=== PATIENT | male | born 1955 | race American Indian/Alaskan Native ===

== ENCOUNTER 2017-01-09 08:19 | Inpatient (IN) | payer SELFPAY ==
[2017-01-09] MEDS ORDERED: ZOFRAN ODT PO ONE (08:53)
[2017-01-09] MEDS ORDERED: ZOFRAN ODT ONE (08:56)
[2017-01-09 10:44] LABS: Bacteria,Urine 1+ /HPF (Negative); Bilirubin,Urine NEG (Negative); Blood,Urine SM (Negative); Ketones,Urine NEG (Negative); Leukocyte Esterase,Urine NEG (Negative); Nitrite,Urine NEG (Negative); Urobilinogen,Urine < 2.0 mg/dL (<2.0)
[2017-01-09] MEDS ORDERED: NORMODYNE IV ONE ×2 (13:38→16:55)
[2017-01-09] MEDS ORDERED: ZOFRAN IV ONE ×2 (14:07→17:17)
[2017-01-09 14:09] LABS: Basophils % (Auto) 0.4 % (0.0-1.8); Eosinophils % (Auto) 0.8 % (0.0-4.3); Hematocrit 43.1 % (35.5-45.6); Hemoglobin 13.7 gm/dl (11.8-15.2); Mean Corpuscular HGB Conc 32 % (32-34); Mean Corpuscular Hemoglobin 29 pg (28-32); Mean Corpuscular Volume 91 fl (84-94); Platelet Count 315 K/mm3 (140-440); Red Blood Count 4.76 M/mm3 (3.65-5.03); Red Cell Distribution Width 15.4 % (13.2-15.2); White Blood Count 12.6 K/mm3 (4.5-11.0)
[2017-01-09] MEDS ORDERED: ZOFRAN ONE ×2 (14:10→17:20)
[2017-01-09 14:19] LABS: INR 0.98 (0.87-1.13)
[2017-01-09 14:20] LABS: Partial Thromboplastin Time 27.2 Sec. (24.2-36.6)
[2017-01-09 14:26] LABS: Alanine Aminotransferase 7 units/L (7-56); Albumin 4.2 g/dL (3.9-5); Albumin/Globulin Ratio 1.4 %; Alkaline Phosphatase 92 units/L (35-129); Anion Gap 22 mmol/L; BUN/Creatinine Ratio 9; Blood Urea Nitrogen 34 mg/dL (9-20); Calcium 9.1 mg/dL (8.4-10.2); Carbon Dioxide 23 mmol/L (22-30); Chloride 99.3 mmol/L (98-107); Glucose 181 mg/dL (75-100); Lipase 34 units/L (13-60); Potassium 4.2 mmol/L (3.6-5.0); Sodium 140 mmol/L (137-145); Total Protein 7.1 g/dL (6.3-8.2)
[2017-01-09 14:40] LABS: Bilirubin,Direct < 0.2 mg/dL (0-0.2); Bilirubin,Indirect 0.3 mg/dL
--- NOTE | 2017-01-09 15:29 | XRay Report ---
AP CHEST: History: Hypertension. AP view of the chest demonstrates a normal mediastinal and cardiac contour with clear lungs and normal bony and soft tissue structures. IMPRESSION: Normal AP chest.
--- NOTE | 2017-01-09 15:45 | Cat Scan Report ---
CT of the abdomen and pelvis without contrast. History: Renal failure, flank pain. Findings: The liver, spleen, and pancreas are normal. The gallbladder is unremarkable. The kidneys demonstrate no evidence of renal stones or hydronephrosis. A subcentimeter round hypodensity is seen in the lateral cortex of the left kidney. There are no other renal abnormalities. No ureteral stones or dilatation. The prostate is moderately enlarged. A Og catheter is seen within the urinary bladder. No mesenteric inflammatory changes or evidence of appendicitis is seen. Multiple scattered small sclerotic lesions are seen within the bony pelvis and lumbar spine. Impression: No acute findings. A small left renal cyst is noted. 2. Prostatic enlargement. 3. Multiple small bony sclerotic lesions are identified. A metastatic process cannot be excluded. I would recommend a nuclear bone scan for confirmation.
[2017-01-09 18:28] LABS: INR 1.03 (0.87-1.13)
[2017-01-09 18:29] LABS: Partial Thromboplastin Time 29.1 Sec. (24.2-36.6)
[2017-01-09 18:30] LABS: Creatine Kinase MB 3.8 ng/mL (0.0-4.0)
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
[2017-01-09] MEDS ORDERED: D50W (25GM) Syringe IV PRN (22:02)
[2017-01-09] MEDS ORDERED: DULCOLAX PR PRN (22:02)
[2017-01-09] MEDS ORDERED: PERCOCET 5/325 PO PRN (22:02)
[2017-01-09] MEDS ORDERED: MILK OF MAGNESIA PO PRN (22:02)
[2017-01-09] MEDS ORDERED: TYLENOL PO PRN (22:02)
[2017-01-09] MEDS ORDERED: ZOFRAN IV PRN (22:02)
[2017-01-09] MEDS ORDERED: APRESOLINE IV ONE (22:02)
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
[2017-01-10] MEDS ORDERED: APRESOLINE IV ONE (02:47)
[2017-01-10] MEDS ORDERED: APRESOLINE IV PRN ×3 (03:20→11:50)
[2017-01-10 05:44] LABS: Basophils % (Auto) 0.7 % (0.0-1.8); Eosinophils % (Auto) 1.4 % (0.0-4.3); Hematocrit 40.3 % (35.5-45.6); Hemoglobin 13.2 gm/dl (11.8-15.2); Mean Corpuscular HGB Conc 33 % (32-34); Mean Corpuscular Hemoglobin 29 pg (28-32); Mean Corpuscular Volume 90 fl (84-94); Platelet Count 282 K/mm3 (140-440); Red Blood Count 4.48 M/mm3 (3.65-5.03); Red Cell Distribution Width 15.5 % (13.2-15.2); White Blood Count 12.5 K/mm3 (4.5-11.0)
[2017-01-10 06:04] LABS: Creatine Kinase MB 2.7 ng/mL (0.0-4.0)
[2017-01-10 06:06] LABS: Calcium 8.4 mg/dL (8.4-10.2); Chloride 101.7 mmol/L (98-107); Potassium 4.1 mmol/L (3.6-5.0)
[2017-01-10] MEDS: FLOMAX PO SCH ×2 (07:03→09:11)
[2017-01-10] MEDS ORDERED: LOVENOX SUB-Q SCH (10:00)
[2017-01-10] MEDS ORDERED: NON-FORMULARY (Nifedipine [Nifedipine Er] 90 MG) PO SCH (12:00)
[2017-01-10] MEDS ORDERED: HYDRALAZINE HCL 150 MG PO SCH (12:00)
[2017-01-10] MEDS: CARDURA PO SCH (12:57)
[2017-01-10] MEDS: celeXA PO SCH (12:58)
[2017-01-10] MEDS: IMDUR PO SCH (12:59)
[2017-01-10] MEDS: KEPPRA PO SCH ×2 (12:59→22:07)
[2017-01-10] MEDS: APRESOLINE PO SCH ×2 (13:00→22:12)
[2017-01-10] MEDS ORDERED: HEPARIN SUB-Q SCH (14:00)
[2017-01-10] MEDS: NOVOLOG SUB-Q SCH ×2 (18:42→22:08)
--- NOTE | 2017-01-10 19:04 | Progress Note ---
Assessment and Plan Assessment and plan: 61 yo AAM with HTN, DM, CKD that progressed to ESRD and had recent AVF placement , but HD not initiated yet, presented for inability to urinate Urinary retention In ER Og catheter placed and suprapubic pain relieved; aprox 1L residual volume noted CT pelvis showed enlarged prostate Obtain renal ultrasound Consult Urology Suspected metastatic prostate cancer CT abdomen/pelvis enlarged prostate and multiple bony lesions that raises suspicion of metastatic prostate cancer Will consult urology and oncology for possible prostate biopsy/bone scan, additional testing and further management CKD/ESRD Status post AV fistula placement HD not initiated Creatinine 4.4, electrolytes within normal limits Monitor closely HTN urgency Home antihypertensive regimen restarted and adjusted, prn iv meds added On Imdur, nifedipine and hydralazine Monitor BP DM Accu-Cheks and SSI History of traumatic brain injury On Keppra for seizure prophylaxis DVT prophylaxis Heparin subcutaneous History Interval history: c/o BP meds not being started on admission and having blood pressure in 190s this morning Hospitalist Physical - Constitutional Vitals: Temp Pulse Resp BP Pulse Ox 97.9 F 89 18 156/92 96 01/10/17 18:22 01/10/17 18:22 01/10/17 18:22 01/10/17 18:22 01/10/17 18:22 General appearance: Present: no acute distress, well-nourished - EENT Eyes: Present: PERRL, EOM intact. Absent: scleral icterus, conjunctival injection - Neck Neck: Present: supple, normal ROM. Absent: masses or JVD - Respiratory Respiratory effort: normal Respiratory: bilateral: CTA, negative: rhonchi, wheezing - Cardiovascular Rhythm: regular Heart Sounds: Present: S1 & S2. Absent: systolic murmur - Extremities Extremities: no ischemia - Abdominal General gastrointestinal: soft, non-tender, non-distended, normal bowel sounds - Psychiatric Psychiatric: cooperative - Neurologic Neurologic: CNII-XII intact, no focal deficits - Additional findings Additional findings: Og in place Results - Labs CBC & Chem 7: 01/10/17 05:19 01/11/17 05:20 Labs: Laboratory Last Values WBC 12.5 K/mm3 (4.5-11.0) H 01/10/17 05:19 RBC 4.48 M/mm3 (3.65-5.03) 01/10/17 05:19 Hgb 13.2 gm/dl (11.8-15.2) 01/10/17 05:19 Hct 40.3 % (35.5-45.6) 01/10/17 05:19 MCV 90 fl (84-94) 01/10/17 05:19 MCH 29 pg (28-32) 01/10/17 05:19 MCHC 33 % (32-34) 01/10/17 05:19 RDW 15.5 % (13.2-15.2) H 01/10/17 05:19 Plt Count 282 K/mm3 (140-440) 01/10/17 05:19 Lymph % (Auto) 9.0 % (13.4-35.0) L 01/10/17 05:19 [place] % (Auto) 9.4 % (0.0-7.3) H 01/10/17 05:19 Eos % (Auto) 1.4 % (0.0-4.3) 01/10/17 05:19 Baso % (Auto) 0.7 % (0.0-1.8) 01/10/17 05:19 Lymph # 1.1 K/mm3 (1.2-5.4) L 01/10/17 05:19 [place] # 1.2 K/mm3 (0.0-0.8) H 01/10/17 05:19 Eos # 0.2 K/mm3 (0.0-0.4) 01/10/17 05:19 Baso # 0.1 K/mm3 (0.0-0.1) 01/10/17 05:19 Seg Neutrophils % 79.5 % (40.0-70.0) H 01/10/17 05:19 Seg Neutrophils # 10.0 K/mm3 (1.8-7.7) H 01/10/17 05:19 PT 14.0 Sec. (12.2-14.9) 01/09/17 17:41 INR 1.03 (0.87-1.13) 01/09/17 17:41 APTT 29.1 Sec. (24.2-36.6) 01/09/17 17:41 Sodium 139 mmol/L (137-145) 01/10/17 05:19 Potassium 4.1 mmol/L (3.6-5.0) 01/10/17 05:19 Chloride 101.7 mmol/L (98-107) 01/10/17 05:19 Carbon Dioxide 21 mmol/L (22-30) L 01/10/17 05:19 Anion Gap 20 mmol/L 01/10/17 05:19 BUN 34 mg/dL (9-20) H 01/10/17 05:19 Creatinine 3.8 mg/dL (0.8-1.5) H 01/10/17 05:19 Estimated GFR 20 ml/min 01/10/17 05:19 BUN/Creatinine Ratio 9 % 01/10/17 05:19 Glucose 170 mg/dL (75-100) H 01/10/17 05:19 Calcium 8.4 mg/dL (8.4-10.2) 01/10/17 05:19 Phosphorus 4.50 mg/dL (2.5-4.5) 01/09/17 13:48 Magnesium 1.90 mg/dL (1.7-2.3) 01/09/17 13:48 Total Bilirubin 0.50 mg/dL (0.1-1.2) 01/09/17 13:48 Direct Bilirubin < 0.2 mg/dL (0-0.2) 01/09/17 13:48 Indirect Bilirubin 0.3 mg/dL 01/09/17 13:48 AST 13 units/L (5-40) 01/09/17 13:48 ALT 7 units/L (7-56) 01/09/17 13:48 Alkaline Phosphatase 92 units/L (35-129) 01/09/17 13:48 Total Creatine Kinase 227 units/L (55-170) H 01/10/17 05:19 CK-MB (CK-2) 2.7 ng/mL (0.0-4.0) 01/10/17 05:19 CK-MB (CK-2) Rel Index 1.1 (0-4) 01/10/17 05:19 Troponin T 0.116 ng/mL (0.00-0.029) H* 01/10/17 05:19 NT-Pro-B Natriuret Pep 2494 pg/mL (0-900) H 01/09/17 17:41 Total Protein 7.1 g/dL (6.3-8.2) 01/09/17 13:48 Albumin 4.2 g/dL (3.9-5) 01/09/17 13:48 Albumin/Globulin Ratio 1.4 % 01/09/17 13:48 Triglycerides 64 mg/dL (2-149) 01/09/17 17:41 Cholesterol 144 mg/dL (50-199) 01/09/17 17:41 LDL Cholesterol Direct 77 mg/dL (50-130) 01/09/17 17:41 HDL Cholesterol 55 mg/dL (40-59) 01/09/17 17:41 Cholesterol/HDL Ratio 2.61 % 01/09/17 17:41 Lipase 95 units/L (13-60) H 01/09/17 17:41 Prostate Specific Ag 29.06 ng/mL (0.00-4.00) H 01/09/17 17:41 Urine Color Yellow (Yellow) 01/09/17 Unknown Urine Turbidity Clear (Clear) 01/09/17 Unknown Urine pH 5.0 (5.0-7.0) 01/09/17 Unknown Ur Specific [place] 1.008 (1.003-1.030) 01/09/17 Unknown Urine Protein 100 mg/dl mg/dL (Negative) 01/09/17 Unknown Urine Glucose (UA) >=500 mg/dL (Negative) 01/09/17 Unknown Urine Ketones Neg mg/dL (Negative) 01/09/17 Unknown Urine Blood Sm (Negative) 01/09/17 Unknown Urine Nitrite Neg (Negative) 01/09/17 Unknown Urine Bilirubin Neg (Negative) 01/09/17 Unknown Urine Urobilinogen < 2.0 mg/dL (<2.0) 01/09/17 Unknown Ur Leukocyte Esterase Neg (Negative) 01/09/17 Unknown Urine WBC (Auto) 1.0 /HPF (0.0-6.0) 01/09/17 Unknown Urine RBC (Auto) 3.0 /HPF (0.0-6.0) 01/09/17 Unknown Urine Bacteria (Auto) 1+ /HPF (Negative) 01/09/17 Unknown - Imaging and Cardiology CT scan - abdomen: report reviewed CT scan - pelvis: report reviewed
[2017-01-10] MEDS: FEOSOL PO SCH (22:07)
[2017-01-10] MEDS: PROCARDIA XL PO SCH (22:07)
[2017-01-10] MEDS: HEPARIN SUB-Q SCH (22:08)
[2017-01-11 06:31] LABS: Calcium 8.2 mg/dL (8.4-10.2); Chloride 101.3 mmol/L (98-107); Potassium 3.7 mmol/L (3.6-5.0)
[2017-01-11] MEDS: HEPARIN SUB-Q SCH ×3 (06:45→22:35)
[2017-01-11] MEDS: NOVOLOG SUB-Q SCH ×4 (11:25→22:44)
[2017-01-11] MEDS: APRESOLINE PO SCH ×3 (11:26→22:35)
[2017-01-11] MEDS: IMDUR PO SCH (11:26)
[2017-01-11] MEDS: PROCARDIA XL PO SCH ×2 (11:26→22:34)
[2017-01-11] MEDS: CARDURA PO SCH (11:26)
[2017-01-11] MEDS: FEOSOL PO SCH ×2 (11:26→22:35)
[2017-01-11] MEDS: KEPPRA PO SCH ×2 (11:26→22:34)
[2017-01-11] MEDS: FLOMAX PO SCH (11:27)
[2017-01-11] MEDS: celeXA PO SCH (11:27)
--- NOTE | 2017-01-11 11:52 | Hem/Onc Consultation ---
History of Present Illness - Reason for Consult Consult date: 01/11/17 - History of Present Illness Consultation dictated. Agree with urology evaluation for prostate biopsy. We will order bone scan. Suspect prostate cancer with bone metastases. Medications and Allergies Allergies Allergy/AdvReac Type Severity Reaction Status Date / Time aspirin Allergy Unknown Verified 01/09/17 08:50 peanut AdvReac Seizure Verified 01/11/17 00:58 Home Medications Medication Instructions Recorded Confirmed Last Taken Type Citalopram [Celexa] 10 mg PO QDAY 01/09/17 01/09/17 Unknown History Doxazosin [Cardura] 4 mg PO QDAY 01/09/17 01/09/17 Unknown History Ergocalciferol [Vitamin D2] 1 cap PO QWEEK 01/09/17 01/09/17 Unknown History Ferrous Sulfate [Iron] 325 mg PO BID 01/09/17 01/09/17 Unknown History Hydralazine HCl 150 mg PO Q8H 01/09/17 01/09/17 Unknown History ISOSORBIDE MONOnitrate [Imdur ER] 60 mg PO QDAY 01/09/17 01/09/17 Unknown History NIFEdipine [] 90 mg PO BID 01/09/17 01/09/17 Unknown History levETIRAcetam [Keppra] 500 mg PO BID 01/09/17 01/09/17 Unknown History Active Meds: Active Medications Acetaminophen (Tylenol) 650 mg PO Q4H PRN PRN Reason: Pain MILD(1-3)/Fever >100.5/BLAS Bisacodyl (Dulcolax) 10 mg MO QDAY PRN PRN Reason: Constipation unrelieved by MOM Citalopram Hydrobromide (Celexa) 10 mg PO QDAY [facility] Last Admin: 01/11/17 11:27 Dose: 10 mg Dextrose (D50w (25gm) Syringe) 50 ml IV PRN PRN PRN Reason: Hypoglycemia Doxazosin Mesylate (Cardura) 4 mg PO QDAY [facility] Last Admin: 01/11/17 11:26 Dose: 4 mg Ergocalciferol (Vitamin D2) 50,000 unit PO [facility] Ferrous Sulfate (Feosol) 325 mg PO BID [facility] Last Admin: 01/11/17 11:26 Dose: 325 mg Heparin Sodium (Porcine) (Heparin) 5,000 unit SUB-Q Q8HR [facility] Last Admin: 01/11/17 06:45 Dose: 5,000 unit Hydralazine HCl (Apresoline) 10 mg IV Q6H PRN PRN Reason: SBP > 160 Hydralazine HCl (Apresoline) 150 mg PO TID [facility] Last Admin: 01/11/17 11:26 Dose: 150 mg Insulin Aspart (Novolog) 0 units SUB-Q ACHS [facility] PRN Reason: Protocol Last Admin: 01/11/17 11:25 Dose: Not Given Isosorbide Mononitrate (Imdur) 60 mg PO QDAY [facility] Last Admin: 01/11/17 11:26 Dose: 60 mg Levetiracetam (Keppra) 500 mg PO BID [facility] Last Admin: 01/11/17 11:26 Dose: 500 mg Magnesium Hydroxide (Milk Of Magnesia) 30 ml PO Q4H PRN PRN Reason: Constipation Nifedipine (Procardia Xl) 90 mg PO BID [facility] Last Admin: 01/11/17 11:26 Dose: 90 mg Ondansetron HCl (Zofran) 4 mg IV Q8H PRN PRN Reason: N/V unrelieved by Reglan Oxycodone/Acetaminophen (Percocet 5/325) 1 tab PO Q6H PRN PRN Reason: Pain, Moderate (4-6) Tamsulosin HCl (Flomax) 0.4 mg PO QDAY [facility] Last Admin: 01/11/17 11:27 Dose: 0.4 mg Exam - Constitutional Vitals: Last Vital Signs Temp 98.1 F 01/11/17 04:43 Pulse 89 01/11/17 04:43 Resp 18 01/11/17 04:43 BP 117/65 01/11/17 04:43 Pulse Ox 94 01/11/17 07:34 Results - Labs lab Results: Laboratory Results - last 24 hr 01/10/17 01/10/17 01/10/17 07:53 11:26 18:15 Sodium Potassium Chloride Carbon Dioxide Anion Gap BUN Creatinine Estimated GFR BUN/Creatinine Ratio Glucose POC Glucose 163 H 211 H 190 H Calcium 01/10/17 01/11/17 20:23 05:20 Sodium 139 Potassium 3.7 Chloride 101.3 Carbon Dioxide 22 Anion Gap 19 BUN 45 H Creatinine 4.4 H Estimated GFR 17 BUN/Creatinine Ratio 10 Glucose 162 H POC Glucose 126 H Calcium 8.2 L
--- NOTE | 2017-01-11 16:20 | Ultrasound Report ---
FINAL REPORT EXAM: US RENAL BILAT HISTORY: ARF TECHNIQUE: Ultrasound examination of the kidneys PRIORS: None. FINDINGS: Visualized right kidney: 9.7 x 4.5 x 4.5 cm. Visualized left kidney: 11.1 x 4.7 x 4.2 cm. Renal cortical thickness is 18 mm on the right and 10 mm on the left. Focal lesion: None Calculus: None Hydronephrosis: Nonspecific scattered hypoechoic foci in the renal medulla bilaterally may be artifact or mild hydronephrosis. Perinephric fluid: None Visualized urinary bladder: Appears empty around Og catheter. IMPRESSION: Nonspecific scattered hypoechoic foci in the renal medulla bilaterally may be artifact or mild hydronephrosis
--- NOTE | 2017-01-11 20:49 | Progress Note ---
Assessment and Plan Assessment and plan: 61 yo AAM with HTN, DM, CKD that progressed to ESRD and had recent AVF placement , but HD not initiated yet, presented for inability to urinate Urinary retention In ER Og catheter placed and suprapubic pain relieved; aprox 1L residual volume noted CT pelvis showed enlarged prostate Renal ultrasound with possible mild hydronephrosis Awaiting Urology valuation Suspected metastatic prostate cancer PSA elevated and CT abdomen/pelvis showing enlarged prostate and multiple bony lesions that raises suspicion of metastatic prostate cancer Oncology consulted and bone scan ordered Awaiting urology evaluation for possible prostate biopsy, additional testing, further management CKD/ESRD Status post AV fistula placement HD not initiated Creatinine 4.4, electrolytes within normal limits Monitor closely HTN urgency Home antihypertensive regimen restarted and adjusted, prn iv meds added On Imdur, nifedipine and hydralazine Monitor BP DM Accu-Cheks and SSI Check hemoglobin A1c History of traumatic brain injury On Keppra for seizure prophylaxis DVT prophylaxis Heparin subcutaneous History Interval history: BP better controlled; has no specific complaints Hospitalist Physical - Constitutional Vitals: Temp Pulse Resp BP Pulse Ox 98.4 F 84 18 133/70 95 01/11/17 16:21 01/11/17 16:21 01/11/17 16:21 01/11/17 16:21 01/11/17 16:21 General appearance: Present: no acute distress, well-nourished - EENT Eyes: Present: PERRL, EOM intact - Neck Neck: Present: supple, normal ROM. Absent: masses or JVD - Respiratory Respiratory effort: normal Respiratory: bilateral: CTA, negative: rales, rhonchi - Cardiovascular Rhythm: regular Heart Sounds: Present: S1 & S2. Absent: systolic murmur - Extremities Extremities: no ischemia Extremity abnormal: other (UE AV fistula) - Abdominal General gastrointestinal: soft, non-tender, non-distended, normal bowel sounds - Psychiatric Psychiatric: cooperative - Neurologic Neurologic: CNII-XII intact, no focal deficits - Additional findings Additional findings: Og catheter in place Results - Labs CBC & Chem 7: 01/10/17 05:19 01/11/17 05:20 Labs: Laboratory Last Values WBC 12.5 K/mm3 (4.5-11.0) H 01/10/17 05:19 RBC 4.48 M/mm3 (3.65-5.03) 01/10/17 05:19 Hgb 13.2 gm/dl (11.8-15.2) 01/10/17 05:19 Hct 40.3 % (35.5-45.6) 01/10/17 05:19 MCV 90 fl (84-94) 01/10/17 05:19 MCH 29 pg (28-32) 01/10/17 05:19 MCHC 33 % (32-34) 01/10/17 05:19 RDW 15.5 % (13.2-15.2) H 01/10/17 05:19 Plt Count 282 K/mm3 (140-440) 01/10/17 05:19 Lymph % (Auto) 9.0 % (13.4-35.0) L 01/10/17 05:19 [place] % (Auto) 9.4 % (0.0-7.3) H 01/10/17 05:19 Eos % (Auto) 1.4 % (0.0-4.3) 01/10/17 05:19 Baso % (Auto) 0.7 % (0.0-1.8) 01/10/17 05:19 Lymph # 1.1 K/mm3 (1.2-5.4) L 01/10/17 05:19 [place] # 1.2 K/mm3 (0.0-0.8) H 01/10/17 05:19 Eos # 0.2 K/mm3 (0.0-0.4) 01/10/17 05:19 Baso # 0.1 K/mm3 (0.0-0.1) 01/10/17 05:19 Seg Neutrophils % 79.5 % (40.0-70.0) H 01/10/17 05:19 Seg Neutrophils # 10.0 K/mm3 (1.8-7.7) H 01/10/17 05:19 PT 14.0 Sec. (12.2-14.9) 01/09/17 17:41 INR 1.03 (0.87-1.13) 01/09/17 17:41 APTT 29.1 Sec. (24.2-36.6) 01/09/17 17:41 Sodium 139 mmol/L (137-145) 01/11/17 05:20 Potassium 3.7 mmol/L (3.6-5.0) 01/11/17 05:20 Chloride 101.3 mmol/L (98-107) 01/11/17 05:20 Carbon Dioxide 22 mmol/L (22-30) 01/11/17 05:20 Anion Gap 19 mmol/L 01/11/17 05:20 BUN 45 mg/dL (9-20) H 01/11/17 05:20 Creatinine 4.4 mg/dL (0.8-1.5) H 01/11/17 05:20 Estimated GFR 17 ml/min 01/11/17 05:20 BUN/Creatinine Ratio 10 % 01/11/17 05:20 Glucose 162 mg/dL (75-100) H 01/11/17 05:20 POC Glucose 208 (70-105) H 01/11/17 16:27 Calcium 8.2 mg/dL (8.4-10.2) L 01/11/17 05:20 Phosphorus 4.50 mg/dL (2.5-4.5) 01/09/17 13:48 Magnesium 1.90 mg/dL (1.7-2.3) 01/09/17 13:48 Total Bilirubin 0.50 mg/dL (0.1-1.2) 01/09/17 13:48 Direct Bilirubin < 0.2 mg/dL (0-0.2) 01/09/17 13:48 Indirect Bilirubin 0.3 mg/dL 01/09/17 13:48 AST 13 units/L (5-40) 01/09/17 13:48 ALT 7 units/L (7-56) 01/09/17 13:48 Alkaline Phosphatase 92 units/L (35-129) 01/09/17 13:48 Total Creatine Kinase 227 units/L (55-170) H 01/10/17 05:19 CK-MB (CK-2) 2.7 ng/mL (0.0-4.0) 01/10/17 05:19 CK-MB (CK-2) Rel Index 1.1 (0-4) 01/10/17 05:19 Troponin T 0.116 ng/mL (0.00-0.029) H* 01/10/17 05:19 NT-Pro-B Natriuret Pep 2494 pg/mL (0-900) H 01/09/17 17:41 Total Protein 7.1 g/dL (6.3-8.2) 01/09/17 13:48 Albumin 4.2 g/dL (3.9-5) 01/09/17 13:48 Albumin/Globulin Ratio 1.4 % 01/09/17 13:48 Triglycerides 64 mg/dL (2-149) 01/09/17 17:41 Cholesterol 144 mg/dL (50-199) 01/09/17 17:41 LDL Cholesterol Direct 77 mg/dL (50-130) 01/09/17 17:41 HDL Cholesterol 55 mg/dL (40-59) 01/09/17 17:41 Cholesterol/HDL Ratio 2.61 % 01/09/17 17:41 Lipase 95 units/L (13-60) H 01/09/17 17:41 Prostate Specific Ag 29.06 ng/mL (0.00-4.00) H 01/09/17 17:41 Urine Color Yellow (Yellow) 01/09/17 Unknown Urine Turbidity Clear (Clear) 01/09/17 Unknown Urine pH 5.0 (5.0-7.0) 01/09/17 Unknown Ur Specific [place] 1.008 (1.003-1.030) 01/09/17 Unknown Urine Protein 100 mg/dl mg/dL (Negative) 01/09/17 Unknown Urine Glucose (UA) >=500 mg/dL (Negative) 01/09/17 Unknown Urine Ketones Neg mg/dL (Negative) 01/09/17 Unknown Urine Blood Sm (Negative) 01/09/17 Unknown Urine Nitrite Neg (Negative) 01/09/17 Unknown Urine Bilirubin Neg (Negative) 01/09/17 Unknown Urine Urobilinogen < 2.0 mg/dL (<2.0) 01/09/17 Unknown Ur Leukocyte Esterase Neg (Negative) 01/09/17 Unknown Urine WBC (Auto) 1.0 /HPF (0.0-6.0) 01/09/17 Unknown Urine RBC (Auto) 3.0 /HPF (0.0-6.0) 01/09/17 Unknown Urine Bacteria (Auto) 1+ /HPF (Negative) 01/09/17 Unknown
--- NOTE | 2017-01-11 22:28 | Consultation ---
REFERRING PHYSICIAN: Jazzy Linder MD REASON FOR CONSULTATION: Possible prostate cancer. HISTORY OF PRESENT ILLNESS: The patient is a 61-year-old male who has history of diabetes, hypertension, chronic kidney disease. He presented to the hospital with difficulty urinating. He had recently been at [facility] and had AV fistula placed. He was to be starting hemodialysis, which he had not yet. During his hospitalization at [facility], he underwent CT of the abdomen and pelvis and was found to have prostatic enlargement along with multiple small bony sclerotic lesions, metastatic disease could not be ruled out. The patient did have a PSA checked, which was 29.8. The patient states his last PSA prior to this have been about a year and a half ago and it was normal. He denies any family history of any prostate cancer. He has lost weight in the last few months. He denies any pain. PAST MEDICAL HISTORY: As mentioned in history of present illness. SOCIAL HISTORY: Does not smoke or drink. FAMILY HISTORY: The patient states he does not know his family history well at all. PHYSICAL EXAMINATION: GENERAL: The patient is awake and oriented. HEENT: Unremarkable. CHEST: Clear. CARDIOVASCULAR: Regular rate. ABDOMEN: Soft, nontender. EXTREMITIES: No clubbing, cyanosis, or edema. PERTINENT LABORATORY: The patient's hemoglobin yesterday was 13.2, white count 12.5. Platelets 282,000. Monocytes 9.4%, lymphocytes 9%, segs were 79%. The patient's creatinine today was 4.4. His alkaline phosphatase was 92 on 01/09/2017. ASSESSMENT: Enlarged prostate with evidence of urinary outlet obstruction and on CT evidence of bony lesions all suggestive of prostate cancer especially with elevated PSA. PLAN: Agree with Urology evaluation. He will need a prostate biopsy. In the meantime, we will order a bone scan. I have discussed this with the patient. The patient understands. JOB# [id number] CECIS/NTS
[2017-01-12] MEDS: HEPARIN SUB-Q SCH ×3 (05:10→22:22)
[2017-01-12 06:36] LABS: Calcium 8.4 mg/dL (8.4-10.2); Chloride 101.8 mmol/L (98-107); Potassium 3.7 mmol/L (3.6-5.0)
--- NOTE | 2017-01-12 09:47 | Hem/Onc Progress Note ---
Assessment and Plan Follow-up on the bone scan. Awaiting urology evaluation. Subjective Date of service: 01/12/17 Interval history: pt to get bone scan. awaiting urology Objective - Constitutional Vitals: Last Vital Signs Temp 98.4 F 01/12/17 04:35 Pulse 90 01/12/17 04:35 Resp 18 01/12/17 04:35 BP 138/76 01/12/17 04:35 Pulse Ox 96 01/12/17 04:35 Performance status: 2- selfcare, ambulatory - Neck Neck: supple - Respiratory Respiratory effort: Positive: normal Respiratory: bilateral: CTA - Cardiovascular Rhythm: regular - Gastrointestinal General gastrointestinal: Present: soft - Labs Lab Results: Laboratory Results - last 24 hr 01/11/17 01/11/17 01/11/17 08:04 11:37 12:26 Sodium Potassium Chloride Carbon Dioxide Anion Gap BUN Creatinine Estimated GFR BUN/Creatinine Ratio Glucose POC Glucose 144 H 186 H 198 H Hemoglobin A1c Calcium 01/11/17 01/11/17 01/12/17 16:27 22:47 05:53 Sodium 138 Potassium 3.7 Chloride 101.8 Carbon Dioxide 22 Anion Gap 18 BUN 47 H Creatinine 4.4 H Estimated GFR 17 BUN/Creatinine Ratio 11 Glucose 204 H POC Glucose 208 H 201 H Hemoglobin A1c Calcium 8.4 01/12/17 05:53 Sodium Potassium Chloride Carbon Dioxide Anion Gap BUN Creatinine Estimated GFR BUN/Creatinine Ratio Glucose POC Glucose Hemoglobin A1c 6.9 H Calcium
[2017-01-12] MEDS: FLOMAX PO SCH (10:38)
[2017-01-12] MEDS: PROCARDIA XL PO SCH ×2 (10:38→22:23)
[2017-01-12] MEDS: IMDUR PO SCH (10:38)
[2017-01-12] MEDS: FEOSOL PO SCH ×2 (10:38→22:25)
[2017-01-12] MEDS: KEPPRA PO SCH ×2 (10:39→22:22)
[2017-01-12] MEDS: CARDURA PO SCH (10:39)
[2017-01-12] MEDS: APRESOLINE PO SCH ×3 (10:39→20:59)
[2017-01-12] MEDS: celeXA PO SCH (10:39)
[2017-01-12] MEDS: NOVOLOG SUB-Q SCH ×4 (10:41→22:31)
--- NOTE | 2017-01-12 13:42 | Nuclear Medicine Report ---
BONE SCAN: HISTORY: Abnormal CT, evaluate for bony metastasis, prostate cancer. FINDINGS: After injection of isotope, gamma camera imaging of the bony system was done. There is a solitary focus of increased radiotracer uptake in the right fourth anterior rib. Mild degenerative uptake in the shoulders, sternoclavicular joints, knees and ankles is noted. Normal urinary and soft tissue uptake. IMPRESSION: Solitary focus of increased radiotracer uptake in the right anterior fourth rib which could be related to a solitary metastasis. Trauma is thought less likely.
--- NOTE | 2017-01-12 15:14 | Consultation ---
History of Present Illness - Reason for Consult Consult date: 01/12/17 - History of Present Illness The patient presented to the emergency department with inability to urinate. He states that he has had a dialysis fistula placed in his right arm in anticipation of dialysis. Obviously has chronic renal insufficiency. He received care at [facility]. I do not know what his prior creatinine was. He states that he has never had a CT scan of his abdomen before. conway placed in ER This relieved his suprapubic pain area and he had a large residual volume of approximately 1 L. He complained of nausea. He was found to be hypertensive. bone scan---suggest mets A/P needs pus bx ( pt sates he wants prostate bx at [place]) Medications and Allergies Allergies Allergy/AdvReac Type Severity Reaction Status Date / Time aspirin Allergy Unknown Verified 01/09/17 08:50 peanut AdvReac Seizure Verified 01/11/17 00:58 Home Medications Medication Instructions Recorded Confirmed Last Taken Type Citalopram [Celexa] 10 mg PO QDAY 01/09/17 01/09/17 Unknown History Doxazosin [Cardura] 4 mg PO QDAY 01/09/17 01/09/17 Unknown History Ergocalciferol [Vitamin D2] 1 cap PO QWEEK 01/09/17 01/09/17 Unknown History Ferrous Sulfate [Iron] 325 mg PO BID 01/09/17 01/09/17 Unknown History Hydralazine HCl 150 mg PO Q8H 01/09/17 01/09/17 Unknown History ISOSORBIDE MONOnitrate [Imdur ER] 60 mg PO QDAY 01/09/17 01/09/17 Unknown History NIFEdipine [] 90 mg PO BID 01/09/17 01/09/17 Unknown History levETIRAcetam [Keppra] 500 mg PO BID 01/09/17 01/09/17 Unknown History Active Meds: Active Medications Acetaminophen (Tylenol) 650 mg PO Q4H PRN PRN Reason: Pain MILD(1-3)/Fever >100.5/BLAS Bisacodyl (Dulcolax) [address] QDAY PRN PRN Reason: Constipation unrelieved by MOM Citalopram Hydrobromide (Celexa) 10 mg PO QDAY [facility] Last Admin: 01/12/17 10:39 Dose: 10 mg Dextrose (D50w (25gm) Syringe) 50 ml IV PRN PRN PRN Reason: Hypoglycemia Doxazosin Mesylate (Cardura) 4 mg PO QDAY [facility] Last Admin: 01/12/17 10:39 Dose: 4 mg Ergocalciferol (Vitamin D2) 50,000 unit PO [facility] Ferrous Sulfate (Feosol) 325 mg PO BID [facility] Last Admin: 01/12/17 10:38 Dose: 325 mg Heparin Sodium (Porcine) (Heparin) 5,000 unit SUB-Q Q8HR [facility] Last Admin: 01/12/17 05:10 Dose: 5,000 unit Hydralazine HCl (Apresoline) 10 mg IV Q6H PRN PRN Reason: SBP > 160 Hydralazine HCl (Apresoline) 150 mg PO TID [facility] Last Admin: 01/12/17 10:39 Dose: 150 mg Insulin Aspart (Novolog) 0 units SUB-Q ACHS [facility] PRN Reason: Protocol Last Admin: 01/12/17 10:41 Dose: 2 units Isosorbide Mononitrate (Imdur) 60 mg PO QDAY [facility] Last Admin: 01/12/17 10:38 Dose: 60 mg Levetiracetam (Keppra) 500 mg PO BID [facility] Last Admin: 01/12/17 10:39 Dose: 500 mg Magnesium Hydroxide (Milk Of Magnesia) 30 ml PO Q4H PRN PRN Reason: Constipation Nifedipine (Procardia Xl) 90 mg PO BID [facility] Last Admin: 01/12/17 10:38 Dose: 90 mg Ondansetron HCl (Zofran) 4 mg IV Q8H PRN PRN Reason: N/V unrelieved by Reglan Oxycodone/Acetaminophen (Percocet 5/325) 1 tab PO Q6H PRN PRN Reason: Pain, Moderate (4-6) Tamsulosin HCl (Flomax) 0.4 mg PO QDAY [facility] Last Admin: 01/12/17 10:38 Dose: 0.4 mg Exam - Constitutional Vitals: Temp Pulse Resp BP Pulse Ox 98.0 F 90 20 132/70 98 01/12/17 08:46 01/12/17 10:39 01/12/17 10:00 01/12/17 10:39 01/12/17 08:46 Results - Labs CBC & Chem 7: 01/10/17 05:19 01/12/17 05:53 Labs: Abnormal lab results 01/11/17 01/11/17 01/11/17 Range/Units 08:04 11:37 16:27 BUN (9-20) mg/dL Creatinine (0.8-1.5) mg/dL Glucose (75-100) mg/dL POC Glucose 144 H 186 H 208 H (70-105) Hemoglobin A1c (4-6) % 01/11/17 01/12/17 01/12/17 Range/Units 22:47 05:53 05:53 BUN 47 H (9-20) mg/dL Creatinine 4.4 H (0.8-1.5) mg/dL Glucose 204 H (75-100) mg/dL POC Glucose 201 H (70-105) Hemoglobin A1c 6.9 H (4-6) %
--- NOTE | 2017-01-12 18:23 | Progress Note ---
Assessment and Plan Assessment and plan: 61 yo AAM with HTN, DM, CKD that progressed to ESRD and had recent AVF placement , but HD not initiated yet, presented for inability to urinate Urinary retention In ER Og catheter placed and suprapubic pain relieved; aprox 1L residual volume noted CT pelvis showed enlarged prostate Renal ultrasound with possible mild hydronephrosis Urology consulted Suspected metastatic prostate cancer PSA elevated and CT abdomen/pelvis showing enlarged prostate and multiple bony lesions that raises suspicion of metastatic prostate cancer Oncology consulted and bone scan obtaine - suspic of rib metastasis Urology consulted for possible prostate biopsy, additional testing, further management, but patient stating that he would like to have it at [facility] CKD/ESRD Status post AV fistula placement HD not initiated Creatinine 4.4, electrolytes within normal limits Monitor closely HTN urgency Home antihypertensive regimen restarted and adjusted, prn iv meds added On Imdur, nifedipine and hydralazine Monitor BP DM Accu-Cheks and SSI Hemoglobin A1c 6.9 History of traumatic brain injury On Keppra for seizure prophylaxis DVT prophylaxis Heparin subcutaneous History Interval history: no complaints Hospitalist Physical - Constitutional Vitals: Temp Pulse Resp BP Pulse Ox 98.2 F 79 18 171/100 97 01/12/17 17:19 01/12/17 17:19 01/12/17 17:19 01/12/17 17:19 01/12/17 17:19 General appearance: Present: no acute distress, well-nourished - EENT Eyes: Present: PERRL, EOM intact - Neck Neck: Present: supple, masses or JVD. Absent: enlarged thyroid - Respiratory Respiratory effort: normal Respiratory: bilateral: CTA, negative: rhonchi, wheezing - Cardiovascular Rhythm: regular Heart Sounds: Present: S1 & S2. Absent: systolic murmur - Extremities Extremities: no ischemia - Abdominal General gastrointestinal: soft, non-tender, non-distended, normal bowel sounds - Psychiatric Psychiatric: cooperative - Neurologic Neurologic: CNII-XII intact, no focal deficits - Additional findings Additional findings: Og in place Results - Labs CBC & Chem 7: 01/10/17 05:19 01/12/17 05:53 Labs: Laboratory Last Values WBC 12.5 K/mm3 (4.5-11.0) H 01/10/17 05:19 RBC 4.48 M/mm3 (3.65-5.03) 01/10/17 05:19 Hgb 13.2 gm/dl (11.8-15.2) 01/10/17 05:19 Hct 40.3 % (35.5-45.6) 01/10/17 05:19 MCV 90 fl (84-94) 01/10/17 05:19 MCH 29 pg (28-32) 01/10/17 05:19 MCHC 33 % (32-34) 01/10/17 05:19 RDW 15.5 % (13.2-15.2) H 01/10/17 05:19 Plt Count 282 K/mm3 (140-440) 01/10/17 05:19 Lymph % (Auto) 9.0 % (13.4-35.0) L 01/10/17 05:19 [place] % (Auto) 9.4 % (0.0-7.3) H 01/10/17 05:19 Eos % (Auto) 1.4 % (0.0-4.3) 01/10/17 05:19 Baso % (Auto) 0.7 % (0.0-1.8) 01/10/17 05:19 Lymph # 1.1 K/mm3 (1.2-5.4) L 01/10/17 05:19 [place] # 1.2 K/mm3 (0.0-0.8) H 01/10/17 05:19 Eos # 0.2 K/mm3 (0.0-0.4) 01/10/17 05:19 Baso # 0.1 K/mm3 (0.0-0.1) 01/10/17 05:19 Seg Neutrophils % 79.5 % (40.0-70.0) H 01/10/17 05:19 Seg Neutrophils # 10.0 K/mm3 (1.8-7.7) H 01/10/17 05:19 PT 14.0 Sec. (12.2-14.9) 01/09/17 17:41 INR 1.03 (0.87-1.13) 01/09/17 17:41 APTT 29.1 Sec. (24.2-36.6) 01/09/17 17:41 Sodium 138 mmol/L (137-145) 01/12/17 05:53 Potassium 3.7 mmol/L (3.6-5.0) 01/12/17 05:53 Chloride 101.8 mmol/L (98-107) 01/12/17 05:53 Carbon Dioxide 22 mmol/L (22-30) 01/12/17 05:53 Anion Gap 18 mmol/L 01/12/17 05:53 BUN 47 mg/dL (9-20) H 01/12/17 05:53 Creatinine 4.4 mg/dL (0.8-1.5) H 01/12/17 05:53 Estimated GFR 17 ml/min 01/12/17 05:53 BUN/Creatinine Ratio 11 % 01/12/17 05:53 Glucose 204 mg/dL (75-100) H 01/12/17 05:53 POC Glucose 212 (70-105) H 01/12/17 16:40 Hemoglobin A1c 6.9 % (4-6) H 01/12/17 05:53 Calcium 8.4 mg/dL (8.4-10.2) 01/12/17 05:53 Phosphorus 4.50 mg/dL (2.5-4.5) 01/09/17 13:48 Magnesium 1.90 mg/dL (1.7-2.3) 01/09/17 13:48 Total Bilirubin 0.50 mg/dL (0.1-1.2) 01/09/17 13:48 Direct Bilirubin < 0.2 mg/dL (0-0.2) 01/09/17 13:48 Indirect Bilirubin 0.3 mg/dL 01/09/17 13:48 AST 13 units/L (5-40) 01/09/17 13:48 ALT 7 units/L (7-56) 01/09/17 13:48 Alkaline Phosphatase 92 units/L (35-129) 01/09/17 13:48 Total Creatine Kinase 227 units/L (55-170) H 01/10/17 05:19 CK-MB (CK-2) 2.7 ng/mL (0.0-4.0) 01/10/17 05:19 CK-MB (CK-2) Rel Index 1.1 (0-4) 01/10/17 05:19 Troponin T 0.116 ng/mL (0.00-0.029) H* 01/10/17 05:19 NT-Pro-B Natriuret Pep 2494 pg/mL (0-900) H 01/09/17 17:41 Total Protein 7.1 g/dL (6.3-8.2) 01/09/17 13:48 Albumin 4.2 g/dL (3.9-5) 01/09/17 13:48 Albumin/Globulin Ratio 1.4 % 01/09/17 13:48 Triglycerides 64 mg/dL (2-149) 01/09/17 17:41 Cholesterol 144 mg/dL (50-199) 01/09/17 17:41 LDL Cholesterol Direct 77 mg/dL (50-130) 01/09/17 17:41 HDL Cholesterol 55 mg/dL (40-59) 01/09/17 17:41 Cholesterol/HDL Ratio 2.61 % 01/09/17 17:41 Lipase 95 units/L (13-60) H 01/09/17 17:41 Prostate Specific Ag 29.06 ng/mL (0.00-4.00) H 01/09/17 17:41 Urine Color Yellow (Yellow) 01/09/17 Unknown Urine Turbidity Clear (Clear) 01/09/17 Unknown Urine pH 5.0 (5.0-7.0) 01/09/17 Unknown Ur Specific [place] 1.008 (1.003-1.030) 01/09/17 Unknown Urine Protein 100 mg/dl mg/dL (Negative) 01/09/17 Unknown Urine Glucose (UA) >=500 mg/dL (Negative) 01/09/17 Unknown Urine Ketones Neg mg/dL (Negative) 01/09/17 Unknown Urine Blood Sm (Negative) 01/09/17 Unknown Urine Nitrite Neg (Negative) 01/09/17 Unknown Urine Bilirubin Neg (Negative) 01/09/17 Unknown Urine Urobilinogen < 2.0 mg/dL (<2.0) 01/09/17 Unknown Ur Leukocyte Esterase Neg (Negative) 01/09/17 Unknown Urine WBC (Auto) 1.0 /HPF (0.0-6.0) 01/09/17 Unknown Urine RBC (Auto) 3.0 /HPF (0.0-6.0) 01/09/17 Unknown Urine Bacteria (Auto) 1+ /HPF (Negative) 01/09/17 Unknown
[2017-01-13] MEDS: HEPARIN SUB-Q SCH ×3 (05:16→22:48)
[2017-01-13] MEDS: PROCARDIA XL PO SCH ×2 (09:31→22:48)
[2017-01-13] MEDS: FEOSOL PO SCH ×2 (09:31→22:48)
[2017-01-13] MEDS: IMDUR PO SCH (09:32)
[2017-01-13] MEDS: celeXA PO SCH (09:32)
[2017-01-13] MEDS: FLOMAX PO SCH (09:32)
[2017-01-13] MEDS: KEPPRA PO SCH ×2 (09:33→22:48)
[2017-01-13] MEDS: APRESOLINE PO SCH ×3 (09:33→21:13)
[2017-01-13] MEDS: CARDURA PO SCH (09:33)
[2017-01-13] MEDS: NOVOLOG SUB-Q SCH ×4 (11:16→22:49)
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
[2017-01-14 05:30] LABS: Basophils % (Auto) 0.6 % (0.0-1.8); Eosinophils % (Auto) 5.1 % (0.0-4.3); Hemoglobin 13.1 gm/dl (11.8-15.2); Mean Corpuscular HGB Conc 34 % (32-34); Mean Corpuscular Hemoglobin 30 pg (28-32); Mean Corpuscular Volume 89 fl (84-94); Platelet Count 254 K/mm3 (140-440); Red Blood Count 4.37 M/mm3 (3.65-5.03); Red Cell Distribution Width 14.8 % (13.2-15.2); White Blood Count 6.1 K/mm3 (4.5-11.0)
[2017-01-14] MEDS: HEPARIN SUB-Q SCH ×3 (05:44→22:07)
[2017-01-14 05:56] LABS: Calcium 8.8 mg/dL (8.4-10.2); Chloride 101.5 mmol/L (98-107); Potassium 3.8 mmol/L (3.6-5.0)
[2017-01-14] MEDS: NOVOLOG SUB-Q SCH ×4 (07:49→22:07)
[2017-01-14] MEDS: PROCARDIA XL PO SCH ×2 (09:40→22:07)
[2017-01-14] MEDS: APRESOLINE PO SCH ×3 (09:40→20:25)
[2017-01-14] MEDS: celeXA PO SCH (09:40)
[2017-01-14] MEDS: FEOSOL PO SCH ×2 (09:40→22:07)
[2017-01-14] MEDS: KEPPRA PO SCH ×2 (09:41→22:07)
[2017-01-14] MEDS: CARDURA PO SCH (09:41)
[2017-01-14] MEDS: FLOMAX PO SCH (09:41)
[2017-01-14] MEDS: IMDUR PO SCH (09:41)
--- NOTE | 2017-01-14 13:07 | Hem/Onc Progress Note ---
Assessment and Plan Patient's bone scan shows right fourth rib lesion. The pelvic lesions are not visible on bone scan. I feel he has metastatic disease even in the pelvis although bone scan negative. I have advised for the patient to get the prostate biopsy and he most likely will get treatment at [place]. If for any reason he wants to come see me, he can come and I can follow-up after the biopsy is done. Subjective Date of service: 01/14/17 Interval history: Patient feels fair. Appreciate urology evaluation. He wants to get the prostate biopsy at [place]. Overall feels well. Bone scan findings noted. Objective - Constitutional Vitals: Last Vital Signs Temp 98.1 F 01/14/17 12:35 Pulse 92 H 01/14/17 12:35 Resp 18 01/14/17 12:35 BP 146/81 01/14/17 12:35 Pulse Ox 98 01/14/17 12:35 Pain Intensity (0-10): denies any pain General appearance: no acute distress - Neck Neck: supple - Respiratory Respiratory: bilateral: CTA - Cardiovascular Rhythm: regular Extremities: No edema - Gastrointestinal General gastrointestinal: Present: soft (Og catheter present clear urine) - Labs Lab Results: Laboratory Results - last 24 hr 01/13/17 01/13/17 01/14/17 15:53 22:00 04:48 WBC 6.1 RBC 4.37 Hgb 13.1 Hct 39.0 MCV 89 MCH 30 MCHC 34 RDW 14.8 Plt Count 254 Lymph % (Auto) 17.2 [place] % (Auto) 9.9 H Eos % (Auto) 5.1 H Baso % (Auto) 0.6 Lymph # 1.1 L [place] # 0.6 Eos # 0.3 Baso # 0.0 Seg Neutrophils % 67.2 Seg Neutrophils # 4.1 Sodium Potassium Chloride Carbon Dioxide Anion Gap BUN Creatinine Estimated GFR BUN/Creatinine Ratio Glucose POC Glucose 123 H 177 H Calcium 01/14/17 01/14/17 01/14/17 04:48 07:46 11:24 WBC RBC Hgb Hct MCV MCH MCHC RDW Plt Count Lymph % (Auto) [place]in % (Auto) Eos % (Auto) Baso % (Auto) Lymph # Hardin # Eos # Baso # Seg Neutrophils % Seg Neutrophils # Sodium 141 Potassium 3.8 Chloride 101.5 Carbon Dioxide 22 Anion Gap 21 BUN 42 H Creatinine 3.8 H Estimated GFR 20 BUN/Creatinine Ratio 11 Glucose 186 H POC Glucose 150 H 174 H Calcium 8.8
--- NOTE | 2017-01-14 14:56 | Progress Note ---
Subjective Date of service: 01/14/17 Objective - Constitutional Vitals: Vital Signs - 12hr 01/14/17 01/14/17 01/14/17 04:41 09:11 10:00 Temperature 98.2 F 98.2 F Pulse Rate 85 97 H 76 Respiratory 18 12 Rate Blood Pressure 173/90 177/89 Blood Pressure [Right] O2 Sat by Pulse 99 98 Oximetry 01/14/17 01/14/17 11:23 12:35 Temperature 98.1 F Pulse Rate 88 92 H Respiratory 18 Rate Blood Pressure Blood Pressure 146/81 [Right] O2 Sat by Pulse 97 98 Oximetry - Labs CBC & Chem 7: 01/14/17 04:48 01/14/17 04:48 Labs: Abnormal lab results 01/13/17 01/13/17 01/14/17 Range/Units 15:53 22:00 04:48 [place] % (Auto) 9.9 H (0.0-7.3) % Eos % (Auto) 5.1 H (0.0-4.3) % Lymph # 1.1 L (1.2-5.4) K/mm3 BUN (9-20) mg/dL Creatinine (0.8-1.5) mg/dL Glucose (75-100) mg/dL POC Glucose 123 H 177 H (70-105) 01/14/17 01/14/17 01/14/17 Range/Units 04:48 07:46 11:24 [place] % (Auto) (0.0-7.3) % Eos % (Auto) (0.0-4.3) % Lymph # (1.2-5.4) K/mm3 BUN 42 H (9-20) mg/dL Creatinine 3.8 H (0.8-1.5) mg/dL Glucose 186 H (75-100) mg/dL POC Glucose 150 H 174 H (70-105)
[2017-01-15] MEDS: HEPARIN SUB-Q SCH (05:11)
[2017-01-15] MEDS: NOVOLOG SUB-Q SCH (08:56)
[2017-01-15] MEDS: APRESOLINE PO SCH (09:17)
[2017-01-15] MEDS: PROCARDIA XL PO SCH (10:10)
[2017-01-15] MEDS: FEOSOL PO SCH (10:10)
[2017-01-15] MEDS: KEPPRA PO SCH (10:10)
[2017-01-15] MEDS: CARDURA PO SCH (10:10)
[2017-01-15] MEDS: celeXA PO SCH (10:11)
[2017-01-15] MEDS: IMDUR PO SCH (10:11)
[2017-01-15] MEDS: FLOMAX PO SCH (10:11)
[2017-01-15 11:47] VITALS: BP 145/76
--- NOTE | 2017-01-15 13:28 | Discharge Summary ---
Providers - Providers Date of Admission: 01/09/17 22:02 Date of discharge: 01/15/17 Attending physician: JACOB NEVAREZ 01/10/17 11:55 Consult to Physician [CONS] Routine Consulting Provider: MAURICIO SHOEMAKER Reason For Exam: suspic of metast prostate cancer Place consult to:: Dr. Shoemaker Notified:: Rosenda CLAROS Phone number called:: Was contact made?: Yes If yes, spoke with:: Eveline-Office Time called:: 13:27 01/10/17 11:56 Consult to Physician [CONS] Routine Consulting Provider: KHUSHBU NULL Reason For Exam: suspic of metast prostate cancer Place consult to:: Dr. Fitzgerald Notified:: Rosenda CLAROS Comment:: Consult is physician to physician. Doctor Kailash made aware Primary care physician: HVAC ENGINEER Hospitalization Reason for admission: unable to urinate/urinary retention Condition: Stable Pertinent studies: CT abdomen and pelvis Echocardiogram Chest x-ray Penile ultrasound Bone scan Consults; Urology Hematology oncology Hospital course: 61 yo AAM with HTN, DM, CKD that progressed to ESRD and had recent AVF placement , but HD not initiated yet, presented with urinary retention Admission evaluated and admitted to the hospital symptomatically managed, evaluated by urologist Discharge diagnosis and management; --Urinary retention; Continuous Og catheterization, urology following Renal ultrasound with possible mild hydronephrosis --Suspected metastatic prostate cancer PSA elevated and CT abdomen/pelvis/enlarged prostate and multiple bony lesions possible metastatic prostate cancer Oncology consulted and bone scan obtaine - suspic of rib metastasis Patient needs prostate biopsy, additional testing, further management, patient would like to have workup at [place] --CKD/ESRD/Status post AV fistula placement Creatinine 4.4, patient will 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-up with 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 private seed 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 upon discharge Closely monitor --HTN urgency; the patient is moderate control, continue current antihypertensives When necessary hydralazine --2DM; Accu-Cheks and SSI, ADA diet Hemoglobin A1c 6.9, may need oral hypoglycemics, patient wants to follow with [facility] --History of traumatic brain injury, On Keppra for seizure prophylaxis Recent symptoms significantly improved and on the day of discharge is comfortably no new complaints Vital signs stable, physical examination prior to discharge did not show new changes Patient is hemodynamically and clinically stable at discharge Disposition: DC-01 TO HOME OR SELFCARE Time spent for discharge: 32 min Core Measure Documentation - Palliative Care Palliative Care/ Comfort Measures: Not Applicable - Core Measures Any of the following diagnoses?: none Exam - Constitutional Vitals: Temp Pulse Resp BP Pulse Ox 98.3 F 97 H 18 145/76 98 01/15/17 11:46 01/15/17 11:46 01/15/17 11:46 01/15/17 11:46 01/15/17 11:46 General appearance: Present: no acute distress, well-nourished - EENT Eyes: Present: PERRL, EOM intact - Neck Neck: Present: supple, normal ROM - Respiratory Respiratory effort: normal Respiratory: bilateral: diminished, negative: rales, rhonchi, wheezing - Cardiovascular Rhythm: regular Heart Sounds: Present: S1 & S2 - Extremities Extremities: no ischemia, No edema Peripheral Pulses: within normal limits - Abdominal General gastrointestinal: Present: soft, non-tender, non-distended, normal bowel sounds - Integumentary Integumentary: Present: clear, warm - Musculoskeletal Musculoskeletal: strength equal bilaterally - Psychiatric Psychiatric: appropriate mood/affect, cooperative - Neurologic Neurologic: CNII-XII intact, moves all extremities Plan Activity: no driving until cleared by PCP, other (seizure precautions) Diet: low salt Additional Instructions: Patient wants to see private urologist at [facility]. Advised to see him in 2-3 days/CHRIS. Continuous Og catheterization until he sees urologist,rec by urology Follow up with: PRIMARY MD TRACEY [Primary Care Provider] - 3-5 Days LUNA DURAN MD [Staff Physician] - 7 Days MAURICIO SHOEMAKER MD [Staff Physician] - 7 Days Prescriptions: hydrALAZINE [Apresoline TAB] 150 mg PO TID #90 tab oxyCODONE /ACETAMINOPHEN [Percocet 5/325 mg] 1 tab PO BID PRN #10 tablet PRN Reason: Pain, Moderate (4-6) Tamsulosin [Flomax] 0.4 mg PO QDAY #30 capsule
[2017-01-16] MEDS ORDERED: celeXA PO SCH (10:00)
[2017-01-17] MEDS ORDERED: VITAMIN D2 PO SCH (10:00)
== END 2017-01-15 14:10 | disposition home or self-care (01) | DRG 725 ==
LOC: ED 08:19 → 4A 22:02
PROVIDERS: ADMIT Internal Medicine; ATTEND Internal Medicine
DX: N40.1 Benign prostatic hyperplasia with lower urinary tract symptoms (principal); N18.6 End stage renal disease; N13.8 Other obstructive and reflux uropathy; N32.0 Bladder-neck obstruction; I12.9 Hypertensive chronic kidney disease with stage 1 through stage 4 chronic kidney disease, or unspecified chronic kidney disease; R33.8 Other retention of urine; I16.0 Hypertensive urgency; E11.22 Type 2 diabetes mellitus with diabetic chronic kidney disease; H54.61 Unqualified visual loss, right eye, normal vision left eye; Z82.49 Family history of ischemic heart disease and other diseases of the circulatory system; Z91.010 Allergy to peanuts; Z88.6 Allergy status to analgesic agent; Z87.820 Personal history of traumatic brain injury; Z79.899 Other long term (current) drug therapy
CPT/HCPCS: 36415; 51702; 71010; 74176; 76770; 78306; 80048; 80061; 80074; 81001; 82550; 82553; 82962; 83036; 83690; 83735; 83880; 84100; 84153; 84484; 85025; 85610; 85730; 93005; 93010; 93306; 96374; 96375; 96376; A9503; J0360; J1644; J1650; J1815; J2405; Q0162

== ENCOUNTER 2017-01-19 08:44 | Emergency (ER) | payer OTHER ==
[2017-01-19 10:22] LABS: Bacteria,Urine 4+ /HPF (Negative); Bilirubin,Urine NEG (Negative); Blood,Urine SM (Negative); Ketones,Urine NEG (Negative); Leukocyte Esterase,Urine LG (Negative); Mucus,Urine FEW /HPF; Nitrite,Urine NEG (Negative); Sperm,Urine FEW /HPF (NP); Urobilinogen,Urine < 2.0 mg/dL (<2.0)
[2017-01-19] MEDS ORDERED: LEVAQUIN PO ONE (14:14)
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
[2017-01-19 15:44] VITALS: BP 144/78
== END 2017-01-19 15:44 | disposition home or self-care (01) ==
LOC: ED 08:44
DX: T83.091A Other mechanical complication of indwelling urethral catheter, initial encounter (principal); E11.22 Type 2 diabetes mellitus with diabetic chronic kidney disease; I13.0 Hypertensive heart and chronic kidney disease with heart failure and stage 1 through stage 4 chronic kidney disease, or unspecified chronic kidney disease; N18.9 Chronic kidney disease, unspecified; I50.9 Heart failure, unspecified; Z88.6 Allergy status to analgesic agent; Z91.010 Allergy to peanuts; Y84.6 Urinary catheterization as the cause of abnormal reaction of the patient, or of later complication, without mention of misadventure at the time of the procedure; Y92.89 Other specified places as the place of occurrence of the external cause
CPT/HCPCS: 81001; 87076; 87086; 87186; 99283

== ENCOUNTER 2017-02-04 09:41 | Emergency (ER) | payer SELFPAY ==
[2017-02-04] MEDS ORDERED: PROCARDIA XL PO SCH ×2 (10:00→22:00)
[2017-02-04 10:15] LABS: Basophils # (Auto) 0.1 K/mm3 (0.0-0.1); Basophils % (Auto) 0.8 % (0.0-1.8); Eosinophils # (Auto) 0.2 K/mm3 (0.0-0.4); Eosinophils % (Auto) 2.6 % (0.0-4.3); Hematocrit 42.9 % (35.5-45.6); Hemoglobin 13.5 gm/dl (11.8-15.2); Lymphocytes # (Auto) 1.2 K/mm3 (1.2-5.4); Lymphocytes % (Auto) 17.7 % (13.4-35.0); Mean Corpuscular HGB Conc 32 % (32-34); Mean Corpuscular Hemoglobin 29 pg (28-32); Mean Corpuscular Volume 93 fl (84-94); Monocytes # (Auto) 0.5 K/mm3 (0.0-0.8); Monocytes % (Auto) 7.8 % (0.0-7.3); Platelet Count 341 K/mm3 (140-440); Red Blood Count 4.62 M/mm3 (3.65-5.03); Red Cell Distribution Width 15.7 % (13.2-15.2)
[2017-02-04 10:18] LABS: Bacteria,Urine 1+ /HPF (Negative); Bilirubin,Urine NEG (Negative); Blood,Urine NEG (Negative); Color,Urine Yellow (Yellow); Mucus,Urine FEW /HPF; Nitrite,Urine NEG (Negative); Urobilinogen,Urine < 2.0 mg/dL (<2.0)
[2017-02-04 10:31] LABS: Calcium 8.8 mg/dL (8.4-10.2)
[2017-02-04] MEDS ORDERED: PERCOCET 5/325 PO PRN (10:36)
[2017-02-04] MEDS ORDERED: ZOFRAN ODT PO PRN (10:37)
[2017-02-04] MEDS ORDERED: ATIVAN IM PRN (10:37)
[2017-02-04] MEDS ORDERED: TYLENOL PO PRN (10:37)
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
[2017-02-04 10:42] LABS: Amphetamine Screen,Urine PRESUMPTIVE NEGATIVE; Benzodiazepines Screen,Urine PRESUMPTIVE NEGATIVE; Cannabinoid Screen,Urine PRESUMPTIVE NEGATIVE; Cocaine Screen,Urine PRESUMPTIVE NEGATIVE; Methadone Screen,Urine PRESUMPTIVE NEGATIVE; Opiate Screen,Urine PRESUMPTIVE NEGATIVE
[2017-02-04] MEDS ORDERED: NON-FORMULARY (Nifedipine [Nifedipine Er] 90 MG) PO SCH (10:45)
[2017-02-04] MEDS ORDERED: celeXA PO SCH (11:00)
[2017-02-04] MEDS: CARDURA PO SCH (12:04)
[2017-02-04] MEDS: celeXA PO SCH (12:04)
[2017-02-04] MEDS: FEOSOL PO SCH ×2 (12:04→22:32)
[2017-02-04] MEDS: FLOMAX PO SCH (12:05)
[2017-02-04] MEDS: IMDUR PO SCH (12:06)
[2017-02-04] MEDS: KEPPRA PO SCH ×2 (12:07→22:32)
[2017-02-04] MEDS: PROCARDIA XL PO SCH ×2 (12:07→22:28)
[2017-02-04] MEDS: APRESOLINE PO SCH ×2 (14:20→22:28)
[2017-02-05] MEDS: APRESOLINE PO SCH ×3 (10:13→22:37)
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
[2017-02-05] MEDS: celeXA PO SCH (11:57)
[2017-02-05] MEDS: CARDURA PO SCH (11:58)
[2017-02-05] MEDS: IMDUR PO SCH (11:59)
[2017-02-05] MEDS: FLOMAX PO SCH (11:59)
[2017-02-05] MEDS: KEPPRA PO SCH ×2 (12:00→22:38)
[2017-02-05] MEDS: PROCARDIA XL PO SCH ×2 (12:07→22:58)
[2017-02-05] MEDS: FEOSOL PO SCH ×2 (12:10→22:58)
[2017-02-05] MEDS: DESYREL PO SCH (22:37)
[2017-02-06] MEDS ORDERED: D50W (25GM) Syringe IV PRN (08:32)
[2017-02-06] MEDS: CARDURA PO SCH (09:03)
[2017-02-06] MEDS: APRESOLINE PO SCH ×3 (09:23→20:00)
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
[2017-02-06 11:03] LABS: Calcium 8.8 mg/dL (8.4-10.2)
--- NOTE | 2017-02-06 11:51 | Event Note ---
Date: 02/06/17 Patient has chronic renal insufficiency. This medical if she was not acutely decompensated, and does not require urgent or emergent nephrology or inpatient admission. The patient were not on a psychiatric hold or 1013, he will be discharged to follow-up with his outpatient follow this on a routine basis. Furthermore, his potassium is within normal limits today. Patient's fistula does not appear to be infected, has some redness, pus or streaking. He is not on dialysis currently.
[2017-02-06] MEDS: FEOSOL PO SCH ×2 (12:02→22:03)
[2017-02-06] MEDS: celeXA PO SCH (12:09)
[2017-02-06] MEDS: FLOMAX PO SCH (12:12)
[2017-02-06] MEDS: IMDUR PO SCH (12:13)
[2017-02-06] MEDS: PROCARDIA XL PO SCH ×2 (12:20→22:04)
[2017-02-06 12:30] VITALS: BP 154/78
[2017-02-06] MEDS: KEPPRA PO SCH ×2 (13:11→22:03)
[2017-02-06] MEDS: DESYREL PO SCH (22:03)
[2017-02-07] MEDS ORDERED: ZOLOFT PO SCH (10:00)
[2017-02-11] MEDS ORDERED: VITAMIN D2 PO SCH (10:00)
== END 2017-02-06 23:02 | disposition home or self-care (01) ==
LOC: ED 09:41 → EEVIPCON 09:41 → ED 02-06 23:02
DX: R45.851 Suicidal ideations (principal); E11.22 Type 2 diabetes mellitus with diabetic chronic kidney disease; I13.0 Hypertensive heart and chronic kidney disease with heart failure and stage 1 through stage 4 chronic kidney disease, or unspecified chronic kidney disease; N18.9 Chronic kidney disease, unspecified; I50.9 Heart failure, unspecified; H54.8 Legal blindness, as defined in USA; Z88.6 Allergy status to analgesic agent; Z91.010 Allergy to peanuts; Z79.899 Other long term (current) drug therapy
CPT/HCPCS: 36415; 80048; 80307; 81001; 82550; 82962; 85025; 99284; G0480; 80320; 99285; J1815

== ENCOUNTER 2017-02-21 04:26 | Emergency (ER) | payer SELFPAY ==
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
[2017-02-21] MEDS ORDERED: CATAPRES PO ONE (19:34)
[2017-02-21 19:44] VITALS: BP 200/90
== END 2017-02-21 19:43 | disposition home or self-care (01) ==
LOC: ED 04:26
DX: N32.0 Bladder-neck obstruction (principal); I11.0 Hypertensive heart disease with heart failure; I50.9 Heart failure, unspecified; E11.9 Type 2 diabetes mellitus without complications; Z88.6 Allergy status to analgesic agent; Z91.010 Allergy to peanuts
CPT/HCPCS: 99283

== ENCOUNTER 2019-12-26 10:24 | Emergency (ER) | payer MEDICARE ==
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
[2019-12-26 11:41] LABS: Basophils # (Auto) 0.1 K/mm3 (0.0-0.1); Basophils % (Auto) 0.8 % (0.0-1.8); Eosinophils # (Auto) 0.2 K/mm3 (0.0-0.4); Eosinophils % (Auto) 1.8 % (0.0-4.3); Hematocrit 36.2 % (35.5-45.6); Hemoglobin 12.2 gm/dl (11.8-15.2); Lymphocytes # (Auto) 0.8 K/mm3 (1.2-5.4); Lymphocytes % (Auto) 6.8 % (13.4-35.0); Mean Corpuscular HGB Conc 34 % (32-34); Mean Corpuscular Volume 95 fl (84-94); Monocytes # (Auto) 1.4 K/mm3 (0.0-0.8); Monocytes % (Auto) 11.3 % (0.0-7.3); Platelet Count 155 K/mm3 (140-440); Red Blood Count 3.81 M/mm3 (3.65-5.03)
[2019-12-26 12:09] LABS: Calcium 8.9 mg/dL (8.4-10.2)
[2019-12-26] MEDS ORDERED: INSULIN REGULAR, HUMAN 100 UNIT/ML 3ML VIAL SUB-Q ONE (12:11)
[2019-12-26] MEDS ORDERED: INSULIN REGULAR, HUMAN 100 UNITS/1 ML ONE (12:30)
[2019-12-26 21:34] VITALS: BP 179/89
== END 2019-12-26 21:15 | disposition home or self-care (01) ==
LOC: ED 10:24
DX: E11.22 Type 2 diabetes mellitus with diabetic chronic kidney disease (principal); I13.2 Hypertensive heart and chronic kidney disease with heart failure and with stage 5 chronic kidney disease, or end stage renal disease; I50.9 Heart failure, unspecified; N18.6 End stage renal disease; E11.65 Type 2 diabetes mellitus with hyperglycemia; Z99.2 Dependence on renal dialysis; Z79.899 Other long term (current) drug therapy; Z79.4 Long term (current) use of insulin; Z88.6 Allergy status to analgesic agent; Z91.010 Allergy to peanuts
CPT/HCPCS: 36415; 80048; 80320; 82962; 85025; G0480; J1815

== ENCOUNTER 2020-02-19 12:45 | Inpatient (IN) | payer MEDICARE ==
[2020-02-19] MEDS ORDERED: PANTOPRAZOLE 40 MG INJ IV ONE (13:12)
[2020-02-19] MEDS ORDERED: ONDANSETRON 4 MG/2 ML INJ IV ONE (13:13)
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
[2020-02-19 14:36] LABS: Basophils % (Auto) 0.1 % (0.0-1.8); Eosinophils % (Auto) 0.1 % (0.0-4.3); Hematocrit 40.5 % (35.5-45.6); Hemoglobin 13.1 gm/dl (11.8-15.2); Lymphocytes # (Auto) 0.5 K/mm3 (1.2-5.4); Lymphocytes % (Auto) 3.4 % (13.4-35.0); Mean Corpuscular HGB Conc 32 % (32-34); Mean Corpuscular Volume 91 fl (84-94); Monocytes # (Auto) 1.3 K/mm3 (0.0-0.8); Monocytes % (Auto) 8.1 % (0.0-7.3); Platelet Count 434 K/mm3 (140-440); Red Blood Count 4.45 M/mm3 (3.65-5.03); Red Cell Distribution Width 16.9 % (13.2-15.2)
[2020-02-19 14:47] LABS: INR 1.17 (0.87-1.13)
[2020-02-19 14:59] LABS: Albumin 3.6 g/dL (3.9-5)
[2020-02-19] MEDS ORDERED: MORPHINE 2 MG/1 ML INJ IV PRN (16:39)
[2020-02-19] MEDS ORDERED: ACETAMINOPHEN 325 MG TAB PO PRN (16:39)
[2020-02-19] MEDS ORDERED: ONDANSETRON 4 MG/2 ML INJ IV PRN (16:39)
[2020-02-19] MEDS ORDERED: DEXTROSE 50% IN WATER (25GM) 50 ML SYRINGE IV PRN (16:39)
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
[2020-02-19] MEDS: PANTOPRAZOLE 80 MG in SODIUM CHLORIDE 0.9% 100 ML IV SCH (19:40)
[2020-02-19] MEDS ORDERED: INSULIN LISPRO 100 UNIT/ML VIAL 3 mL SUB-Q SCH (22:00)
[2020-02-19] MEDS: INSULIN LISPRO 100 UNIT/ML VIAL 3 mL SUB-Q SCH (23:01)
[2020-02-20] MEDS: PANTOPRAZOLE 80 MG in SODIUM CHLORIDE 0.9% 100 ML IV SCH (04:07)
[2020-02-20 06:00] LABS: Basophils % (Auto) 0.1 % (0.0-1.8); Eosinophils # (Auto) 0.1 K/mm3 (0.0-0.4); Eosinophils % (Auto) 0.5 % (0.0-4.3); Hematocrit 40.6 % (35.5-45.6); Hemoglobin 12.9 gm/dl (11.8-15.2); Lymphocytes # (Auto) 0.6 K/mm3 (1.2-5.4); Lymphocytes % (Auto) 4.2 % (13.4-35.0); Mean Corpuscular HGB Conc 32 % (32-34); Mean Corpuscular Volume 92 fl (84-94); Monocytes # (Auto) 1.4 K/mm3 (0.0-0.8); Monocytes % (Auto) 10.8 % (0.0-7.3); Platelet Count 395 K/mm3 (140-440); Red Blood Count 4.44 M/mm3 (3.65-5.03); Red Cell Distribution Width 16.4 % (13.2-15.2)
[2020-02-20 06:13] LABS: INR 1.18 (0.87-1.13)
[2020-02-20] MEDS: INSULIN LISPRO 100 UNIT/ML VIAL 3 mL SUB-Q SCH ×4 (08:16→23:44)
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
[2020-02-20 11:51] LABS: Hepatitis B Surface Antigen Non-Reactive (Negative)
[2020-02-20 11:52] LABS: Hepatitis C Virus Antibody Non-Reactive (NonReactive)
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
--- NOTE | 2020-02-20 13:49 | Gastroenterology Progress Note ---
Assessment and Plan Coffee ground emesis - no episodes/signs of gi bleeding since admission. H/H stable/remains normal. okay to resume diet. no plans for endoscopy given low suspicion for gi bleeding at present time. will sign off, please call as needed Subjective Date of service: 02/20/20 Principal diagnosis: coffee ground emesis Interval history: no signs of gi bleeding since admission Objective - Exam Narrative Exam: Gen: nad abd: soft, nd - Constitutional Vitals: Temp Pulse Resp BP Pulse Ox 98.5 F 75 15 150/74 95 02/20/20 06:23 02/20/20 06:23 02/20/20 06:23 02/20/20 06:23 02/20/20 06:23 - Labs CBC & Chem 7: 02/20/20 05:10 02/20/20 05:10 Labs: Laboratory Results - last 24 hr 02/19/20 02/19/20 02/19/20 14:23 14:23 14:23 WBC 15.9 H RBC 4.45 Hgb 13.1 Hct 40.5 MCV 91 MCH 29 MCHC 32 RDW 16.9 H Plt Count 434 Lymph % (Auto) 3.4 L [place] % (Auto) 8.1 H Eos % (Auto) 0.1 Baso % (Auto) 0.1 Lymph # (Auto) 0.5 L [place] # (Auto) 1.3 H Eos # (Auto) 0.0 Baso # (Auto) 0.0 Seg Neutrophils % 88.3 H Seg Neutrophils # 14.1 H PT 14.7 INR 1.17 H APTT 25.0 Sodium 133 L Potassium 5.1 H Chloride 88.1 L Carbon Dioxide 21 L Anion Gap 29 BUN 110 H Creatinine 13.1 H Estimated GFR 5 BUN/Creatinine Ratio 8 Glucose 373 H POC Glucose Calcium 9.0 Total Bilirubin 0.30 AST 13 ALT 14 Alkaline Phosphatase 64 Total Protein 7.0 Albumin 3.6 L Albumin/Globulin Ratio 1.1 Lipase 59 Hepatitis A IgM Ab Hep Bs Antigen Hep B Core IgM Ab Hepatitis C Antibody Blood Type Antibody Screen 02/19/20 02/19/20 02/20/20 15:42 22:09 05:10 WBC 13.1 H RBC 4.44 Hgb 12.9 Hct 40.6 MCV 92 MCH 29 MCHC 32 RDW 16.4 H Plt Count 395 Lymph % (Auto) 4.2 L [place] % (Auto) 10.8 H Eos % (Auto) 0.5 Baso % (Auto) 0.1 Lymph # (Auto) 0.6 L [place] # (Auto) 1.4 H Eos # (Auto) 0.1 Baso # (Auto) 0.0 Seg Neutrophils % 84.4 H Seg Neutrophils # 11.1 H PT INR APTT Sodium Potassium Chloride Carbon Dioxide Anion Gap BUN Creatinine Estimated GFR BUN/Creatinine Ratio Glucose POC Glucose 306 H Calcium Total Bilirubin AST ALT Alkaline Phosphatase Total Protein Albumin Albumin/Globulin Ratio Lipase Hepatitis A IgM Ab Hep Bs Antigen Hep B Core IgM Ab Hepatitis C Antibody Blood Type O POSITIVE Antibody Screen Negative 02/20/20 02/20/20 02/20/20 05:10 05:10 08:52 WBC RBC Hgb Hct MCV MCH MCHC RDW Plt Count Lymph % (Auto) [place] % (Auto) Eos % (Auto) Baso % (Auto) Lymph # (Auto) [place] # (Auto) Eos # (Auto) Baso # (Auto) Seg Neutrophils % Seg Neutrophils # PT 14.8 INR 1.18 H APTT Sodium 137 Potassium 5.1 H Chloride 90.3 L Carbon Dioxide 21 L Anion Gap 31 BUN 129 H Creatinine 14.6 H Estimated GFR 4 BUN/Creatinine Ratio 9 Glucose 196 H POC Glucose Calcium 9.0 Total Bilirubin AST ALT Alkaline Phosphatase Total Protein Albumin Albumin/Globulin Ratio Lipase Hepatitis A IgM Ab Non-reactive Hep Bs Antigen Non-reactive Hep B Core IgM Ab Non-reactive Hepatitis C Antibody Non-reactive Blood Type Antibody Screen
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
[2020-02-20] MEDS ORDERED: MORPHINE 2 MG/1 ML INJ IM ONE (18:00)
[2020-02-20] MEDS ORDERED: MORPHINE 2 MG/1 ML INJ IV ONE (18:00)
[2020-02-21 06:30] LABS: Basophils % (Auto) 0.2 % (0.0-1.8); Eosinophils # (Auto) 0.1 K/mm3 (0.0-0.4); Eosinophils % (Auto) 1.2 % (0.0-4.3); Hematocrit 37.9 % (35.5-45.6); Hemoglobin 12.1 gm/dl (11.8-15.2); Lymphocytes # (Auto) 0.7 K/mm3 (1.2-5.4); Lymphocytes % (Auto) 7.3 % (13.4-35.0); Mean Corpuscular HGB Conc 32 % (32-34); Mean Corpuscular Volume 92 fl (84-94); Monocytes # (Auto) 1.4 K/mm3 (0.0-0.8); Monocytes % (Auto) 14.6 % (0.0-7.3); Platelet Count 388 K/mm3 (140-440); Red Blood Count 4.12 M/mm3 (3.65-5.03); Red Cell Distribution Width 16.9 % (13.2-15.2)
[2020-02-21 06:47] LABS: Calcium 8.4 mg/dL (8.4-10.2)
[2020-02-21] MEDS ORDERED: SODIUM CHLORIDE 0.9% 100 ML IV PRN ×2 (09:13→12:37)
[2020-02-21] MEDS ORDERED: LORazepam 2 MG/ML VIAL IV PRN (10:21)
[2020-02-21] MEDS ORDERED: QUEtiapine 25 MG TAB PO SCH (11:00)
--- NOTE | 2020-02-21 11:01 | Progress Note ---
Assessment and Plan - Patient Problems (1) COVID-19 Current Visit: Yes Status: Acute Plan to address problem: Coronavirus infection. Patient currently asymptomatic. Patient status post full course therapy. Continue supportive care. (2) ESRD (end stage renal disease) Current Visit: Yes Status: Acute Plan to address problem: Nephrology team consulted, dialysis as per renal team. (3) GI bleed Current Visit: Yes Status: Acute Plan to address problem: Hemoglobin stable. PPI therapy, GI consulted. No active GI bleed. (4) Vascular dementia with behavior disturbance Current Visit: No Status: Acute Plan to address problem: Benzodiazepine therapy as needed, verbal prompting, verbal redirection, supportive care. (5) DVT prophylaxis Current Visit: No Status: Acute Plan to address problem: SCD to bilateral lower extremities while in bed, (6) Advance care planning Current Visit: No Status: Acute Plan to address problem: Disease education conducted, patient is full code, care plan discussed, patient knowledges understanding and agreement with care plan, +30 minutes. History Interval history: 64-year-old male hospital day 3 with end-stage renal disease noncompliant with dialysis therapy, vascular dementia, cerebral atherosclerosis, psychosis status post traumatic brain injury. Patient resting in bed. Patient counseled regarding noncompliance. Hospitalist Physical - Constitutional Vitals: Temp Pulse Resp BP Pulse Ox 98.6 F 77 20 165/58 98 02/21/20 04:07 02/21/20 04:07 02/21/20 04:07 02/21/20 04:07 02/21/20 04:07 General appearance: Present: no acute distress, well-nourished - EENT Eyes: Present: PERRL, EOM intact - Neck Neck: Present: supple - Respiratory Respiratory effort: normal Respiratory: bilateral: diminished - Cardiovascular Rhythm: regular Heart Sounds: Present: S1 & S2 - Extremities Extremities: no ischemia Peripheral Pulses: within normal limits - Abdominal General gastrointestinal: soft, non-tender, non-distended - Integumentary Integumentary: Present: clear, dry - Psychiatric Psychiatric: no intact judgment & insight, no memory intact, cooperative - Neurologic Neurologic: moves all extremities, no gait normal Results - Labs CBC & Chem 7: 02/21/20 05:15 02/21/20 05:15 Labs: Laboratory Last Values WBC 9.3 K/mm3 (4.5-11.0) 02/21/20 05:15 RBC 4.12 M/mm3 (3.65-5.03) 02/21/20 05:15 Hgb 12.1 gm/dl (11.8-15.2) 02/21/20 05:15 Hct 37.9 % (35.5-45.6) 02/21/20 05:15 MCV 92 fl (84-94) 02/21/20 05:15 MCH 29 pg (28-32) 02/21/20 05:15 MCHC 32 % (32-34) 02/21/20 05:15 RDW 16.9 % (13.2-15.2) H 02/21/20 05:15 Plt Count 388 K/mm3 (140-440) 02/21/20 05:15 Lymph % (Auto) 7.3 % (13.4-35.0) L 02/21/20 05:15 [place] % (Auto) 14.6 % (0.0-7.3) H 02/21/20 05:15 Eos % (Auto) 1.2 % (0.0-4.3) 02/21/20 05:15 Baso % (Auto) 0.2 % (0.0-1.8) 02/21/20 05:15 Lymph # (Auto) 0.7 K/mm3 (1.2-5.4) L 02/21/20 05:15 [place] # (Auto) 1.4 K/mm3 (0.0-0.8) H 02/21/20 05:15 Eos # (Auto) 0.1 K/mm3 (0.0-0.4) 02/21/20 05:15 Baso # (Auto) 0.0 K/mm3 (0.0-0.1) 02/21/20 05:15 Seg Neutrophils % 76.7 % (40.0-70.0) H 02/21/20 05:15 Seg Neutrophils # 7.1 K/mm3 (1.8-7.7) 02/21/20 05:15 PT 14.8 Sec. (12.2-14.9) 02/20/20 05:10 INR 1.18 (0.87-1.13) H 02/20/20 05:10 APTT 25.0 Sec. (24.2-36.6) 02/19/20 14:23 Sodium 136 mmol/L (137-145) L 02/21/20 05:15 Potassium 5.5 mmol/L (3.6-5.0) H 02/21/20 05:15 Chloride 90.7 mmol/L (98-107) L 02/21/20 05:15 Carbon Dioxide 16 mmol/L (22-30) L 02/21/20 05:15 Anion Gap 35 mmol/L 02/21/20 05:15 BUN 153 mg/dL (9-20) H 02/21/20 05:15 Creatinine 17.4 mg/dL (0.8-1.3) H 02/21/20 05:15 Estimated GFR 3 ml/min 02/21/20 05:15 BUN/Creatinine Ratio 9 % 02/21/20 05:15 Glucose 191 mg/dL (75-100) H 02/21/20 05:15 POC Glucose 187 mg/dL (70-105) H 02/21/20 08:12 Calcium 8.4 mg/dL (8.4-10.2) 02/21/20 05:15 Total Bilirubin 0.30 mg/dL (0.1-1.2) 02/19/20 14:23 AST 13 units/L (5-40) 02/19/20 14:23 ALT 14 units/L (7-56) 02/19/20 14:23 Alkaline Phosphatase 64 units/L (35-129) 02/19/20 14:23 Total Protein 7.0 g/dL (6.3-8.2) 02/19/20 14:23 Albumin 3.6 g/dL (3.9-5) L 02/19/20 14:23 Albumin/Globulin Ratio 1.1 % 02/19/20 14:23 Lipase 59 units/L (13-60) 02/19/20 14:23 Hepatitis A IgM Ab Non-reactive (NonReactive) 02/20/20 08:52 Hep Bs Antigen Non-reactive (Negative) 02/20/20 08:52 Hep B Core IgM Ab Non-reactive (NonReactive) 02/20/20 08:52 Hepatitis C Antibody Non-reactive (NonReactive) 02/20/20 08:52 Blood Type O POSITIVE 02/19/20 15:42 Antibody Screen Negative 02/19/20 15:42 Microbiology: Microbiology 02/19/20 21:15 Peripheral/Venous Blood Culture - Preliminary NO GROWTH AFTER 24 HOURS 02/19/20 21:12 Peripheral/Venous Blood Culture - Preliminary NO GROWTH AFTER 24 HOURS Og/IV: Voiding Method Indwelling Catheter IV Catheter Type [Left INT / Saline Lock Antecubital] Active Medications - Current Medications Current Medications: Generic Name Dose Route Start Last Admin Trade Name Freq PRN Reason Stop Dose Admin Acetaminophen 650 mg 02/19/20 16:39 Acetaminophen 325 Mg Tab PO Q4H PRN Pain MILD(1-3)/Fever >100.5/BLAS Dextrose 50 ml 02/19/20 16:39 Dextrose 50% In Water (25gm) 50 Ml Syringe IV Q30MIN PRN Hypoglycemia Protocol Pantoprazole Sodium 80 mg/ 100 mls @ 10 mls/hr 02/19/20 16:00 02/20/20 04:07 Sodium Chloride IV 8 mg/hr DIRECT ROSELIA 10 mls/hr Administration 8 MG/HR Sodium Chloride 100 mls @ 999 mls/hr 02/21/20 09:13 Nacl 0.9% IV LATASHA PRN Hypotension Insulin Human Lispro 0 unit 02/19/20 22:00 02/20/20 23:44 Insulin Lispro 100 Unit/Ml Vial 3 Ml SUB-Q Not Given ACHS ROSELIA Protocol Lorazepam 2 mg 02/21/20 10:21 Lorazepam 2 Mg/Ml Vial IV Q4H PRN Agitation Morphine Sulfate 2 mg 02/19/20 16:39 Morphine 2 Mg/1 Ml Inj IV Q4H PRN Pain, Moderate (4-6) Ondansetron HCl 4 mg 02/19/20 16:39 Ondansetron 4 Mg/2 Ml Inj IV Q8H PRN Nausea And Vomiting Quetiapine Fumarate 25 mg 02/21/20 11:00 Quetiapine 25 Mg Tab PO DAILY ROSELIA Sodium Chloride 10 ml 02/19/20 22:00 02/20/20 23:44 Sodium Chloride 0.9% 10 Ml Flush Syringe IV Not Given BID ROSELIA Sodium Chloride 10 ml 02/19/20 16:39 Sodium Chloride 0.9% 10 Ml Flush Syringe IV PRN PRN LINE FLUSH Nutrition/Malnutrition Assess - Dietary Evaluation Nutrition/Malnutrition Findings: Nutrition Notes Start: 02/20/20 11:13 Freq: Status: Active Protocol: Document 02/20/20 11:13 AB (Rec: 02/20/20 13:47 AB [id number]) Co-Sign 02/20/20 11:13 LP Nutrition Notes Need for Assessment generated from: MD Order,Education Initial or Follow up Assessment Current Diagnosis CKD (stage V CKD),Diabetes, Hypertension,Heart Failure Other Pertinent Diagnosis COVID-19 (+), GI bleed, AMS, seizure, vascular dementia, metabolic acidosis Current Diet Consistent Carb Labs/Tests K 5.1 BUN 129 Cr 14.6 BG 196 Pertinent Medications Humalog Height 6 ft Weight 86.1 kg [place] Body Weight (kg) 80.90 BMI 25.7 Weight Status Appropriate Subjective/Other Information MD consult for diet education. Pt not appropriate for diet education at this time. Per RN , pt refusing meals and is unable to comprehend d/t TBI. Called pt room 2x and no answer. Pt on HD T/Th/S. Pt experiencing coffee ground emesis, per chart. Percent of energy/protein needs met: 0%/0% Burn Absent Trauma Absent GI Symptoms Vomiting Food Allergy Yes Current % PO Negligible Minimum of two criteria No #1 Nutrition Diagnosis Inadequate oral intake Etiology AMS, chronic illness As Evidenced by Signs and Symptoms Pt refusing to eat meals and experiencing coffee ground emesis Is patient on ventilator? No Is Patient Ambulatory and/or Out of Bed No REE-([facility]-confined to bed) Calculation Used for Recommendations [facility] Additional Notes Protein: >103 g (>1.2 g/kg) Fluid: 1 ml/kcal Nutrition Intervention Change Diet Order: Continue current diet order Add Supplement/Snack (indicate name/kcal Nepro TID /protein ) Provides kCal: 1,275 Provides Protein (gm) 57 Goal #1 Meet at least 50% of energy and protein needs via PO and ONS. Anticipated Discharge Needs: Consistent Carb Follow-Up By: 02/23/20 Additional Comments F/U for ONS tolerance, intakes , wt change, renal labs
[2020-02-21] MEDS: INSULIN LISPRO 100 UNIT/ML VIAL 3 mL SUB-Q SCH ×3 (11:16→17:50)
--- NOTE | 2020-02-21 11:41 | Progress Note ---
Subjective Principal diagnosis: coffee ground emesis Interval history: Came to evaluate the patient and reviewed the chart and interdispinary notes at length. Due to coronavirus pandemic and limited availability of PPE, patient was not evaluated physically. Events of 24 hours vitals labs intake output medications were reviewed Past medical history: Reviewed Family history: Reviewed Social history: Reviewed Allergies: Reviewed Vitals reviewed Labs and x-rays: Reviewed from today Physical examination and findings were reviewed from patient's current chart Assessment and plan; #ESRD currently on hemodialysis, patient has history of traumatic brain injury occasionally confused and agitated refusing to dialyze I believe he will benefit from initiation of antipsychotic in a lower dose to see how he tolerates in the absence of which is dialysis cannot be performed and his mortality risk is going to be high If dialysis is tolerated well he will need chemo dialysis treatment again tomorrow As of today his hemoglobin is 12.0, potassium is 5.5 bicarbonate 16 BUN 153 and creatinine is 17.4 I did discuss this with hospital medicine service we will try him on a smaller dose of antipsychotic medication to see if he will tolerate, occasionally patient also complains of itching and agitation during dialysis if needed we can also give him some Benadryl #Patient has oftentimes refused his dialysis sometimes he does not understand it well sometimes agitated confused and psychotic I believe a low-dose of antip sychotic such as Seroquel is needed for him #Anemia and end-stage renal disease: GI bleed currently being followed by gastroenterology #Bone mineral disorder and secondary hyperparathyroidism to monitor and follow #Hypertension: Needs close monitoring sometime patient refuses medications in the outpatient setting #History of traumatic brain injury, will need to see neurology as well as psychiatry on an ongoing basis Care plan was discussed with hospital medicine service attending physician today If there is any further question in regards to this patient renal care 's call me at [phone] We'll continue to follow and make recommendation for renal standpoint Mo Vigil MD [address] [place] [address]. [address] [place] [address] Office number [phone] Objective - Vital Signs Vital signs: Vital Signs - 12hr 02/21/20 04:07 Temperature 98.6 F Pulse Rate 77 Respiratory 20 Rate Blood Pressure 165/58 O2 Sat by Pulse 98 Oximetry - Lab 02/21/20 05:15 02/21/20 05:15 Most recent lab results Calcium 8.4 mg/dL (8.4-10.2) 02/21/20 05:15 Medications & Allergies - Medications Allergies/Adverse Reactions: Allergies aspirin Allergy (Verified 09/24/19 09:52) Unknown peanut Adverse Reaction (Verified 09/24/19 09:52) Seizure Home Medications: Home Medications Medication Instructions Recorded Confirmed Last Taken Type Citalopram [Celexa] 10 mg PO QDAY #30 tablet 10/03/19 12/26/19 1 Day Ago Rx ~12/25/19 Ferrous Sulfate [Iron 325 MG] 325 mg PO BID #60 10/03/19 12/26/19 1 Day Ago Rx ~12/25/19 ISOSORBIDE MONOnitrate [Imdur ER] 60 mg PO QDAY 30 Days tablet 10/03/19 12/26/19 1 Day Ago Rx ~12/25/19 Memantine 5 mg PO QDAY #30 tablet 10/03/19 12/26/19 1 Day Ago Rx ~12/25/19 NIFEdipine XL [Procardia Xl] 90 mg PO BID #60 tablet 10/03/19 12/26/19 1 Day Ago Rx ~12/25/19 Tamsulosin [Flomax] 0.4 mg PO QDAY #30 capsule 10/03/19 12/26/19 1 Day Ago Rx ~12/25/19 busPIRone [Buspar] 5 mg PO BID #60 10/03/19 12/26/19 1 Day Ago Rx ~12/25/19 hydrALAZINE [Apresoline TAB] 100 mg PO TID #90 tab 10/03/19 12/26/19 1 Day Ago Rx ~12/25/19 levETIRAcetam [Keppra TAB] 500 mg PO BID #60 tablet 10/03/19 12/26/19 1 Day Ago Rx ~12/25/19 Calcium Acetate [Phoslo] 667 mg PO TID 12/26/19 12/26/19 1 Day Ago History ~12/25/19 Divalproex [Arturo BORJAS] 125 mg PO BID 12/26/19 12/26/19 1 Day Ago History ~12/25/19 Folic Acid/Vit B Complex and C 0.8 mg PO DAILY 12/26/19 12/26/19 1 Day Ago History [Renal Vitamin Tablet] ~12/25/19 Nut.tx.imp.renal Fxn,Lac-Reduc 1,000 ml PO DAILY 12/26/19 12/26/19 1 Day Ago History [Nepro Carb Steady] ~12/25/19 Sennosides [Senna] 8.6 mg PO DAILY 12/26/19 12/26/19 1 Day Ago History ~12/25/19 carvediloL [Coreg] 12.5 mg PO BID 12/26/19 12/26/19 1 Day Ago History ~12/25/19 Active Medications: Generic Name Dose Route Start Last Admin Trade Name Freq PRN Reason Stop Dose Admin Acetaminophen 650 mg 02/19/20 16:39 Acetaminophen 325 Mg Tab PO Q4H PRN Pain MILD(1-3)/Fever >100.5/BLAS Dextrose 50 ml 02/19/20 16:39 Dextrose 50% In Water (25gm) 50 Ml Syringe IV Q30MIN PRN Hypoglycemia Protocol Pantoprazole Sodium 80 mg/ 100 mls @ 10 mls/hr 02/19/20 16:00 02/20/20 04:07 Sodium Chloride IV 8 mg/hr DIRECT ROSELIA 10 mls/hr Administration 8 MG/HR Sodium Chloride 100 mls @ 999 mls/hr 02/21/20 09:13 Nacl 0.9% IV LATASHA PRN Hypotension Insulin Human Lispro 0 unit 02/19/20 22:00 02/21/20 11:16 Insulin Lispro 100 Unit/Ml Vial 3 Ml SUB-Q Not Given ACHS ROSELIA Protocol Lorazepam 2 mg 02/21/20 11:19 Lorazepam 2 Mg/Ml Vial IM Q4H PRN Agitation Morphine Sulfate 2 mg 02/19/20 16:39 Morphine 2 Mg/1 Ml Inj IV Q4H PRN Pain, Moderate (4-6) Ondansetron HCl 4 mg 02/19/20 16:39 Ondansetron 4 Mg/2 Ml Inj IV Q8H PRN Nausea And Vomiting Quetiapine Fumarate 25 mg 02/21/20 11:00 02/21/20 11:17 Quetiapine 25 Mg Tab PO Not Given DAILY ROSELIA Sodium Chloride 10 ml 02/19/20 22:00 02/20/20 23:44 Sodium Chloride 0.9% 10 Ml Flush Syringe IV Not Given BID ROSELIA Sodium Chloride 10 ml 02/19/20 16:39 Sodium Chloride 0.9% 10 Ml Flush Syringe IV PRN PRN LINE FLUSH
[2020-02-21] MEDS: LORazepam 2 MG/ML VIAL IM PRN ×2 (14:49→20:18)
[2020-02-21 20:15] VITALS: BP 103/53
== END 2020-02-21 20:20 | DRG 377 ==
LOC: ED 12:45 → 3A 15:21 → OBSVTOIN 02-20 14:55
PROVIDERS: ADMIT Internal Medicine Geriatric Medicine; ATTEND Internal Medicine
PROC: 5A1D70Z Performance of Urinary Filtration, Intermittent, Less than 6 Hours Per Day (ICD-10-PCS; principal; 2020-02-21)
DX: K92.2 Gastrointestinal hemorrhage, unspecified (principal); U07.1 COVID-19; N18.6 End stage renal disease; N25.81 Secondary hyperparathyroidism of renal origin; F01.51 Vascular dementia, unspecified severity, with behavioral disturbance; I13.2 Hypertensive heart and chronic kidney disease with heart failure and with stage 5 chronic kidney disease, or end stage renal disease; R56.9 Unspecified convulsions; D64.9 Anemia, unspecified; D72.829 Elevated white blood cell count, unspecified; I50.9 Heart failure, unspecified; E11.22 Type 2 diabetes mellitus with diabetic chronic kidney disease; Z87.820 Personal history of traumatic brain injury; Z79.899 Other long term (current) drug therapy; Z88.2 Allergy status to sulfonamides; Z91.010 Allergy to peanuts
CPT/HCPCS: 36415; 80048; 80053; 80074; 82962; 83690; 85025; 85610; 85730; 86850; 86900; 86901; 87040; 96365; 96372; 96375; 96376; G0378; C9113; J1815; J2060; J2270; J2405